=== PATIENT | female | born 1960 | race Two or more races ===

== ENCOUNTER 2020-05-26 04:06 | Emergency (ER) | payer MEDICAID ==
[~2020-05-26] VITALS: Ht 157.5 cm; Wt 63.5 kg
[2020-05-26 04:10] VITALS: BP 162/77
--- NOTE | 2020-05-26 04:10 | NUR ---
ED Nurse Note: PT BROUGHT IN BY [facility] 813 FROM HOME C/O GENERALIZED BODY ACHE AND CHILLS FOR FEW DAYS. PT STATED LT SIDED SORENESS. NO FEVER, SOB, CP, OR NV. PT PLACED ON DROPLET PRECAUTION. VSS, NAD, AAOX4, AMBULATORY, ERMD AT BEDSIDE. EKG DONE AT BEDSIDE
--- NOTE | 2020-05-26 04:23 | Emergency Room Report ---
History of Present Illness General Chief Complaint: General Complaint Source: Patient Present Illness HPI Is a 59-year-old female presents after increased body aches and chills. Onset of symptoms 2 days ago. Reports recent fall states that she has been having increased upper back pain and discomfort after falling. Denies any vomiting or diarrhea. Reports some cigarette smoking. Denies any cough. Denies any shortness of breath. Reports having sensation of [id number]. States she is been compliant with insulin. pain is worse with movement of her shoulder. Reports having prior history of diabetes. Allergies: Coded Allergies: ASPIRIN (Verified Allergy, Unknown, 05/26/20) METFORMIN (Verified Allergy, Unknown, 05/26/20) COVID-19 Screening Contact w/high risk pt: No Experienced COVID-19 symptoms?: Yes COVID-19 Testing performed PARKING LOT SPOTTER: No Patient History Past Medical History: see triage record, DM Reviewed Nursing Documentation: PMH: Agreed; PSxH: Agreed Nursing Documentation-PMH Hx Hypertension: Yes Hx Diabetes: Yes Review of Systems All Other Systems: negative except mentioned in HPI Physical Exam Vital Signs Date Time Temp Pulse Resp B/P (MAP) Pulse Ox O2 Delivery O2 Flow Rate FiO2 05/26/20 04:06 97.5 85 16 178/81 (113) 95 Room Air Sp02 EP Interpretation: reviewed, normal General Appearance: normal inspection, well appearing, no apparent distress, alert, GCS 15 Head: atraumatic ENT: normal ENT inspection, hearing grossly normal, normal voice Neck: normal inspection, full range of motion, supple, no bony tend Respiratory: normal inspection, lungs clear, normal breath sounds, no respiratory distress, no retraction, no wheezing Cardiovascular #1: regular rate, rhythm, no edema Gastrointestinal: normal inspection, normal bowel sounds, non tender, soft, no guarding, no hernia Genitourinary: no CVA tenderness Musculoskeletal: normal inspection, back normal, normal range of motion Neurologic: alert, motor strength/tone normal, drum puller III-XII nml as tested, oriented x3, responsive, speech normal, normal inspection Psychiatric: normal inspection, judgement/insight normal, mood/affect normal Medical Decision Making Diagnostic Impression: Primary Impression: Acute shoulder pain due to trauma ER Course Patient presented for increased body aches. Differential diagnosis include was not limited to fracture, contusion, neuropathy, urinary tract infection among others. Because of complexity of patient's case laboratory tests and imaging studies were ordered.X-ray imaging showed calcific tendinitis to the shoulder. Laboratory testing was unremarkable. Urine drug screen was positive for amphetamine. Patient was given medications for pain. She given prescription for gabapentin as well as Keflex. She is advised to return if worse. The patient is advised to follow up with primary care doctor in 1-2 days. Patient is advised to return if any worsening condition or if any changes in status that are concerning. This report is dictated with [employer] history department chair software which may occasionally lead to discrepancies related to use of this software. Labs Test 05/26/20 04:30 05/26/20 05:55 White Blood Count 10.5 K/UL (4.8-10.8) Red Blood Count 4.19 M/UL (4.20-5.40) Hemoglobin 12.3 G/DL (12.0-16.0) Hematocrit 38.5 % (37.0-47.0) Mean Corpuscular Volume 92 FL (80-99) Mean Corpuscular Hemoglobin 29.4 PG (27.0-31.0) Mean Corpuscular Hemoglobin Concent 32.0 G/DL (32.0-36.0) Red Cell Distribution Width 12.6 % (11.6-14.8) Platelet Count 307 K/UL (150-450) Mean Platelet Volume 7.0 FL (6.5-10.1) Neutrophils (%) (Auto) 63.1 % (45.0-75.0) Lymphocytes (%) (Auto) 25.2 % (20.0-45.0) Monocytes (%) (Auto) 6.2 % (1.0-10.0) Eosinophils (%) (Auto) 4.0 % (0.0-3.0) Basophils (%) (Auto) 1.5 % (0.0-2.0) Sodium Level 144 MMOL/L (136-145) Potassium Level 4.3 MMOL/L (3.5-5.1) Chloride Level 109 MMOL/L (98-107) Carbon Dioxide Level 28 MMOL/L (21-32) Anion Gap 8 mmol/L (5-15) Blood Urea Nitrogen 25 mg/dL (7-18) Creatinine 1.1 MG/DL (0.55-1.30) Estimat Glomerular Filtration Rate 50.8 mL/min (>60) Glucose Level 87 MG/DL (74-106) Lactic Acid Level 0.50 mmol/L (0.4-2.0) Calcium Level 8.9 MG/DL (8.5-10.1) Total Bilirubin 0.2 MG/DL (0.2-1.0) Aspartate Amino Transf (AST/SGOT) 31 U/L (15-37) Alanine Aminotransferase (ALT/SGPT) 49 U/L (12-78) Alkaline Phosphatase 101 U/L (46-116) Total Creatine Kinase 178 U/L (26-308) Creatine Kinase MB 4.1 NG/ML (0.0-3.6) Creatine Kinase MB Relative Index 2.3 Troponin I 0.000 ng/mL (0.000-0.056) Total Protein 6.9 G/DL (6.4-8.2) Albumin 3.1 G/DL (3.4-5.0) Globulin 3.8 g/dL Albumin/Globulin Ratio 0.8 (1.0-2.7) Urine Color Pale yellow Urine Appearance Clear Urine pH 6 (4.5-8.0) Urine Specific [place] 1.015 (1.005-1.035) Urine Protein 3+ (NEGATIVE) Urine Glucose (UA) Negative (NEGATIVE) Urine Ketones Negative (NEGATIVE) Urine Blood 2+ (NEGATIVE) Urine Nitrite Negative (NEGATIVE) Urine Bilirubin Negative (NEGATIVE) Urine Urobilinogen Normal MG/DL (0.0-1.0) Urine Leukocyte Esterase Negative (NEGATIVE) Urine RBC 0-2 /HPF (0 - 2) Urine WBC 0-2 /HPF (0 - 2) Urine Squamous Epithelial Cells Few /LPF (NONE/OCC) Urine Bacteria None /HPF (NONE) Urine Opiates Screen Negative (NEGATIVE) Urine Barbiturates Screen Negative (NEGATIVE) Phencyclidine (PCP) Screen Negative (NEGATIVE) Urine Amphetamines Screen Positive (NEGATIVE) Urine Benzodiazepines Screen Negative (NEGATIVE) Urine Cocaine Screen Negative (NEGATIVE) Urine Marijuana (THC) Screen Negative (NEGATIVE) Last Vital Signs Date Time Temp Pulse Resp B/P (MAP) Pulse Ox O2 Delivery O2 Flow Rate FiO2 05/26/20 04:06 97.5 85 16 178/81 (113) 95 Room Air Status: improved Disposition: HOME, SELF-CARE Condition: Stable Scripts Gabapentin* (GABAPENTIN*) 400 Mg Capsule 400 MG ORAL TWICE A DAY, #20 CAP 0 Refills Prov: Madi Mckeon MD 05/26/20 Cephalexin* (KEFLEX*) 500 Mg Capsule 500 MG ORAL EVERY 6 HOURS, #28 CAP Prov: Madi Mckeon MD 05/26/20 Madi Mckeon MD May 26, 2020 04:23
--- NOTE | 2020-05-26 04:30 | NUR ---
ED Nurse Note: BLOOD, COVID COLLECTED AND SENT TO LAB
[2020-05-26 04:53] LABS: BASOPHILS % (AUTO) 1.5 % (0.0-2.0); HEMATOCRIT 38.5 % (37.0-47.0); HEMOGLOBIN 12.3 G/DL (12.0-16.0); LYMPHOCYTES % (AUTO) 25.2 % (20.0-45.0); MEAN CORPUSCULAR VOLUME 92 FL (80-99); MONOCYTES % (AUTO) 6.2 % (1.0-10.0); NEUTROPHILS % (AUTO) 63.1 % (45.0-75.0); PLATELET COUNT 307 K/UL (150-450); RED BLOOD COUNT 4.19 M/UL (4.20-5.40); RED CELL DISTRIBUTION WIDTH 12.6 % (11.6-14.8); WHITE BLOOD COUNT 10.5 K/UL (4.8-10.8)
[2020-05-26 05:00] LABS: ANION GAP 8 mmol/L (5-15); BLOOD UREA NITROGEN 25 mg/dL (7-18); CALCIUM 8.9 MG/DL (8.5-10.1); CARBON DIOXIDE 28 MMOL/L (21-32); CHLORIDE 109 MMOL/L (98-107); CREATININE 1.1 MG/DL (0.55-1.30); POTASSIUM 4.3 MMOL/L (3.5-5.1); SODIUM 144 MMOL/L (136-145)
--- NOTE | 2020-05-26 05:00 | NUR ---
ED Nurse Note: PT UNABLE TO PROVIDE URINE AT THIS TIME. WILL ATTEMPT AT A LATER TIME.
--- NOTE | 2020-05-26 05:10 | NUR ---
ED Nurse Note: xr at bedside
[2020-05-26 05:14] LABS: ALANINE AMINOTRANSFERASE 49 U/L (12-78); ALBUMIN 3.1 G/DL (3.4-5.0); ALBUMIN/GLOBULIN RATIO 0.8 (1.0-2.7); ALKALINE PHOSPHATASE 101 U/L (46-116); ASPARTATE AMINO TRANSFERASE 31 U/L (15-37); BILIRUBIN,TOTAL 0.2 MG/DL (0.2-1.0); CKMB 4.1 NG/ML (0.0-3.6); CREATINE KINASE 178 U/L (26-308)
[2020-05-26] MEDS ORDERED: CEPHALEXIN500 MG ORAL (05:46)
[2020-05-26] MEDS ORDERED: GABAPENTIN400 MG ORAL (05:47)
--- NOTE | 2020-05-26 05:55 | NUR ---
ED Nurse Note: urine collected and sent to lab
[2020-05-26 06:15] LABS: APPEARANCE,URINE CLEAR; BILIRUBIN, URINE NEGATIVE (NEGATIVE); COLOR,URINE PALE YELLOW; GLUCOSE, URINE (UA) NEGATIVE (NEGATIVE); KETONES,URINE NEGATIVE (NEGATIVE); LEUKOCYTE ESTERASE ,URINE NEGATIVE (NEGATIVE); NITRITE,URINE NEGATIVE (NEGATIVE); PH,URINE 6 (4.5-8.0); PROTEIN,URINE 3+ (NEGATIVE); UROBILINOGEN,URINE NORMAL MG/DL (0.0-1.0)
[2020-05-26 06:35] VITALS: BP 137/87
--- NOTE | 2020-05-26 06:35 | NUR ---
ER DISCHARGE NOTE: Patient is cleared to be discharged per ERMD, pt is aox4, on room air, with stable vital signs. pt was given dc and prescription instructions, pt was able to verbalize understanding, pt id band and iv site removed without complications. pt is able to ambulate with steady gait. pt took all belongings.
--- NOTE | 2020-05-26 12:17 | Diagnostic Imaging Report ---
EXAM: X-RAY XRAY Shoulder Compl L CLINICAL HISTORY: Shoulder pain.. COMPARISON: None FINDINGS: Total of 3 views of the left shoulder were obtained. Alignment is anatomic. There is no fracture, bony lesions or erosions. Joint spaces are unremarkable. Soft tissue mineralization at the greater tuberosity suggest calcific tendinitis IMPRESSION: CALCIFIC TENDINITIS. NO ACUTE BONY ABNORMALITY.
--- NOTE | 2020-05-26 12:17 | Diagnostic Imaging Report ---
Procedure: XRAY Chest 1v Reason for study: Reason For Exam: SOB Comparison films: None. FINDINGS: A single one view chest is obtained. Vascularity is normal. Minimal streaky atelectasis lateral left lung base. Cardiac and mediastinal silhouette are within normal limits. CP angles are sharp. The bony thorax appear unremarkable. IMPRESSION: Left basilar streaky atelectasis.
== END 2020-05-26 06:35 | disposition home or self-care (01) ==
LOC: EDBD 04:06 → EMR 04:22
DX: M25.512 Pain in left shoulder (principal); M75.32 Calcific tendinitis of left shoulder; J98.11 Atelectasis; Z88.6 Allergy status to analgesic agent; E11.9 Type 2 diabetes mellitus without complications; I10 Essential (primary) hypertension; F17.210 Nicotine dependence, cigarettes, uncomplicated
CPT/HCPCS: 36415; 71045; 73030; 80053; 80307; 81003; 82550; 82553; 83605; 84484; 85025; 87040; 93005; U0002; Z7502; 99284